=== PATIENT | male | born 1995 | race Caucasian/White ===

== ENCOUNTER 2017-06-30 21:13 | Emergency (ER) | payer MEDICAID ==
[~2017-06-30] VITALS: Ht 165.1 cm; Wt 86.4 kg
[2017-06-30 21:14] VITALS: BP 155/87
[2017-06-30 22:26] LABS: AMPHET/METH SCREEN,URINE NEGATIVE (NEGATIVE); BARBITURATE SCREEN, URINE NEGATIVE (NEGATIVE); BENZODIAZEPINES SCREEN,URINE NEGATIVE (NEGATIVE); CANNABINOID SCREEN,URINE NEGATIVE (NEGATIVE); COCAINE SCREEN,URINE NEGATIVE (NEGATIVE); METHADONE SCREEN, URINE NEGATIVE (NEGATIVE); OPIATE SCREEN,URINE NEGATIVE (NEGATIVE); PHENCYCLIDINE SCREEN,URINE NEGATIVE (NEGATIVE)
== END 2017-06-30 23:30 | disposition left against medical advice (07) ==
LOC: EMS 21:13
DX: F41.9 Anxiety disorder, unspecified (principal); F22 Delusional disorders; F17.210 Nicotine dependence, cigarettes, uncomplicated; F12.90 Cannabis use, unspecified, uncomplicated; Z53.21 Procedure and treatment not carried out due to patient leaving prior to being seen by health care provider

== ENCOUNTER 2020-09-14 02:54 | Emergency (ER) | payer MEDICAID, OTHER ==
[~2020-09-14] VITALS: Ht 170.2 cm; Wt 113.6 kg
[2020-09-14 03:14] VITALS: BP 141/70
[2020-09-14 03:43] LABS: BASOPHILS % (AUTO) 0.7 % (0.0-2.0); EOSINOPHILS % (AUTO) 1.5 % (1.0-6.0); HEMATOCRIT 45.2 % (41-53); HEMOGLOBIN 15.6 g/dL (13.5-17.5); LYMPHOCYTES # (AUTO) 2.5 K/uL (1.0-4.8); LYMPHOCYTES % (AUTO) 31.1 % (22.0-44.0); MEAN CORPUSCULAR HGB CONC 34.4 G/dL (31.0-37.0); MEAN CORPUSCULAR VOLUME 84 fL (80-100); MONOCYTES # (AUTO) 0.6 K/uL (0.1-1.0); MONOCYTES % (AUTO) 7.6 % (2.0-9.0); NEUTROPHILS # (AUTO) 4.7 K/uL (1.8-7.7); NEUTROPHILS % (AUTO) 59.1 % (40.0-70.0); PLATELET COUNT (AUTO) 299 K/uL (150-450); RED BLOOD CELL COUNT(AUTO) 5.37 MIL/uL (4.50-5.90); RED CELL DISTRIBUTION WIDTH 12.8 % (11.5-14.5)
[2020-09-14 03:56] LABS: ANION GAP 15 mmol/L (8-16); CALCIUM, TOTAL 8.9 mg/dL (8.8-10.5); CARBON DIOXIDE 20 mmol/L (22-29); CHLORIDE 102 mmol/L (98-107); CREATININE 0.96 mg/dL (0.60-1.30); GLOMERULAR FILTR. RATE CALC > 60 mL/min (>60); GLUCOSE,RANDOM 124 mg/dL (70-110); POTASSIUM 3.4 mmol/L (3.5-5.1); SODIUM SERUM 137 mmol/L (136-145); UREA NITROGEN, BLOOD 14 mg/dL (7-18)
[2020-09-14] MEDS ORDERED: POTASSIUM CHLORIDE 20 MEQ ER TABLET PO ONE (04:00)
[2020-09-14] MEDS ORDERED: LORazepam 1 MG TABLET PO ONE (04:00)
[2020-09-14 04:01] LABS: ALANINE AMINOTRANSFERASE 212 U/L (12-78); ALBUMIN 4.3 g/dL (3.4-5.0); ALKALINE PHOSPHATASE 83 U/L (46-116); ASPARTATE AMINOTRANSFERASE 68 U/L (15-37); BILIRUBIN,TOTAL 0.7 mg/dL (0.1-1.0); TOTAL PROTEIN, SERUM 7.6 g/dL (6.4-8.2)
== END 2020-09-14 04:15 | disposition home or self-care (01) ==
LOC: EMS 02:56
DX: F41.9 Anxiety disorder, unspecified (principal); F32.9 Major depressive disorder, single episode, unspecified
CPT/HCPCS: 36415; 80053; 85025; 99283; G0480

== ENCOUNTER 2020-10-23 17:36 | Inpatient (IN) | payer MEDICAID, OTHER ==
[~2020-10-23] VITALS: Ht 166.4 cm; Wt 104.3 kg
[2020-10-23] MEDS ORDERED: QUEtiapine FUMARATE 100 MG TABLET PO PRN (20:15)
[2020-10-23] MEDS ORDERED: ZOLPIDEM TARTRATE 10 MG TABLET PO PRN (20:15)
[2020-10-23 20:58] LABS: COVID AG,FIA SOURCE NASOPHARYNGEAL
[2020-10-23 21:10] LABS: BASOPHILS % (AUTO) 0.5 % (0.0-2.0); EOSINOPHILS % (AUTO) 0.7 % (1.0-6.0); HEMATOCRIT 45.2 % (41-53); HEMOGLOBIN 15.5 g/dL (13.5-17.5); LYMPHOCYTES # (AUTO) 1.4 K/uL (1.0-4.8); LYMPHOCYTES % (AUTO) 15.6 % (22.0-44.0); MEAN CORPUSCULAR HEMOGLOBIN 29.4 pg (26.0-34.0); MEAN CORPUSCULAR HGB CONC 34.4 G/dL (31.0-37.0); MEAN CORPUSCULAR VOLUME 86 fL (80-100); MONOCYTES # (AUTO) 0.6 K/uL (0.1-1.0); MONOCYTES % (AUTO) 6.3 % (2.0-9.0); NEUTROPHILS # (AUTO) 7.1 K/uL (1.8-7.7); NEUTROPHILS % (AUTO) 76.9 % (40.0-70.0); PLATELET COUNT (AUTO) 329 K/uL (150-450); RED BLOOD CELL COUNT(AUTO) 5.29 MIL/uL (4.50-5.90); RED CELL DISTRIBUTION WIDTH 13.1 % (11.5-14.5)
[2020-10-23 21:21] LABS: ANION GAP 12 mmol/L (8-16); CALCIUM, TOTAL 9.5 mg/dL (8.8-10.5); CARBON DIOXIDE 25 mmol/L (22-29); CHLORIDE 105 mmol/L (98-107); CREATININE 0.75 mg/dL (0.60-1.30); GLOMERULAR FILTR. RATE CALC > 60 mL/min (>60); GLUCOSE,RANDOM 147 mg/dL (70-110); POTASSIUM 3.8 mmol/L (3.5-5.1); SODIUM SERUM 142 mmol/L (136-145); UREA NITROGEN, BLOOD 15 mg/dL (7-18)
[2020-10-23 21:25] LABS: ALANINE AMINOTRANSFERASE 328 U/L (12-78); ALBUMIN 4.1 g/dL (3.4-5.0); ALKALINE PHOSPHATASE 94 U/L (46-116); ASPARTATE AMINOTRANSFERASE 122 U/L (15-37); BILIRUBIN,TOTAL 0.4 mg/dL (0.1-1.0); TOTAL PROTEIN, SERUM 7.8 g/dL (6.4-8.2)
[2020-10-24 01:40] VITALS: BP 130/84
[2020-10-24 06:26] VITALS: BP 109/72
[2020-10-24 08:08] VITALS: BP 122/92
[2020-10-24 08:16] LABS: CHOL/HDL RATIO 6.2 (4.2-7.3)
[2020-10-24] MEDS: LORazepam 2 MG TABLET PO PRN ×2 (08:43→20:42)
[2020-10-24] MEDS ORDERED: DiphenhydrAMINE HCL 50 MG/ML VIAL IM ONE (09:30)
[2020-10-24] MEDS ORDERED: HALOPERIDOL LACTATE 5 MG/ML VIAL IM ONE (09:30)
[2020-10-24] MEDS ORDERED: LORazepam 2 MG/ML VIAL IM ONE (09:30)
[2020-10-24] MEDS ORDERED: HALOPERIDOL LACTATE 5 MG/ML VIAL ONE (09:31)
[2020-10-24] MEDS ORDERED: LORazepam 2 MG/ML VIAL ONE (09:31)
[2020-10-24] MEDS ORDERED: DiphenhydrAMINE HCL 50 MG/ML VIAL ONE (09:31)
[2020-10-24] MEDS ORDERED: SERT-438 PO (10:06)
[2020-10-24] MEDS ORDERED: RISP0.5T39 PO (10:06)
[2020-10-24] MEDS ORDERED: LOPERAMIDE HCL 2 MG CAPSULE PO PRN (10:45)
[2020-10-24] MEDS ORDERED: MAGNESIUM HYDROXIDE SUSPENSION 30 ML UDCUP PO PRN (10:45)
[2020-10-24] MEDS ORDERED: DOCUSATE SODIUM 100 MG CAPSULE PO PRN (10:45)
[2020-10-24] MEDS ORDERED: CloNIDine HCL 0.1 MG TABLET PO PRN (10:45)
[2020-10-24] MEDS ORDERED: ONDANSETRON HCL 4 MG TABLET PO PRN (10:45)
[2020-10-24] MEDS ORDERED: GuaiFENesin/D-METHORPHAN [SUGAR-FREE] 200-20MG/10 ML SYRUP UDCUP PO PRN (10:45)
[2020-10-24] MEDS ORDERED: NICOTINE 14 MG/24 HOUR PATCH TD PRN (10:45)
[2020-10-24] MEDS ORDERED: ALBUTEROL SULFATE HFA 90 MCG/PUFF 8 GM INHALER IH PRN (10:45)
[2020-10-24] MEDS ORDERED: PETROLATUM,WHITE 28 GM JELLY TP PRN (10:45)
[2020-10-24] MEDS ORDERED: MAG HYDROX/AL HYDROX/SIMETH ES 30 ML SUSPENSION UDCUP PO PRN (10:45)
[2020-10-24] MEDS ORDERED: ACETAMINOPHEN 325 MG TABLET PO PRN (10:45)
[2020-10-24] MEDS ORDERED: IBUPROFEN 400 MG TABLET PO PRN (10:45)
[2020-10-24 16:51] VITALS: BP 127/60
[2020-10-24] MEDS: RisperiDONE 0.5 MG TABLET PO SCH (20:42)
[2020-10-25 04:36] VITALS: BP 124/68
[2020-10-25 08:30] VITALS: BP 139/84
[2020-10-25] MEDS: RisperiDONE 0.5 MG TABLET PO SCH ×2 (09:39→20:00)
[2020-10-25] MEDS: SERTRALINE HCL 50 MG TABLET PO SCH (09:39)
[2020-10-25] MEDS: LORazepam 2 MG TABLET PO PRN (09:41)
[2020-10-25 16:16] VITALS: BP 133/76
[2020-10-26 05:58] VITALS: BP 124/62
[2020-10-26 08:52] VITALS: BP 135/81
[2020-10-26] MEDS: SERTRALINE HCL 50 MG TABLET PO SCH (09:04)
[2020-10-26] MEDS: RisperiDONE 0.5 MG TABLET PO SCH (09:04)
== END 2020-10-26 15:00 | disposition home or self-care (01) | DRG 750 ==
LOC: EMS 17:38 → B3A 20:42
DX: F25.1 Schizoaffective disorder, depressive type (principal); R45.851 Suicidal ideations; Z59.0 Homelessness; Z20.822 Contact with and (suspected) exposure to COVID-19; E66.9 Obesity, unspecified; F41.9 Anxiety disorder, unspecified; F43.10 Post-traumatic stress disorder, unspecified; F84.0 Autistic disorder; Z79.899 Other long term (current) drug therapy; E78.5 Hyperlipidemia, unspecified; R00.0 Tachycardia, unspecified; Z68.37 Body mass index [BMI] 37.0-37.9, adult
CPT/HCPCS: 80053; 80061; 85025; 99285; G0480; J1200; J1630; J2060; Q0162

== ENCOUNTER 2023-04-04 19:58 | Inpatient (IN) | payer MEDICAID, OTHER ==
[~2023-04-04] VITALS: Ht 170.2 cm; Wt 72.7 kg
[~2023-04-04 19:58] MED LIST: RISP0.5T39 PO; SERT-438 PO
[2023-04-04 20:47] LABS: BASOPHILS % (AUTO) 0.3 % (0.0-2.0); EOSINOPHILS % (AUTO) 0.6 % (1.0-6.0); HEMATOCRIT 41.6 % (41-53); HEMOGLOBIN 14.9 g/dL (13.5-17.5); LYMPHOCYTES # (AUTO) 1.5 K/uL (1.0-4.8); MEAN CORPUSCULAR HEMOGLOBIN 30.2 pg (26.0-34.0); MEAN CORPUSCULAR HGB CONC 35.7 G/dL (31.0-37.0); MEAN CORPUSCULAR VOLUME 84 fL (80-100); MONOCYTES # (AUTO) 0.6 K/uL (0.1-1.0); MONOCYTES % (AUTO) 7.6 % (2.0-9.0); NEUTROPHILS # (AUTO) 5.3 K/uL (1.8-7.7); NEUTROPHILS % (AUTO) 71.5 % (40.0-70.0); PLATELET COUNT (AUTO) 282 K/uL (150-450); RED BLOOD CELL COUNT(AUTO) 4.93 MIL/uL (4.50-5.90); RED CELL DISTRIBUTION WIDTH 12.7 % (11.5-14.5); WHITE BLOOD COUNT (AUTO) 7.5 K/uL (4.5-11.0)
[2023-04-04 20:57] LABS: ANION GAP 11 mmol/L (8-16); CALCIUM, TOTAL 9.9 mg/dL (8.8-10.5); CARBON DIOXIDE 28 mmol/L (22-29); CHLORIDE 101 mmol/L (98-107); CREATININE 0.86 mg/dL (0.60-1.30); GLOMERULAR FILTR. RATE CALC > 60 mL/min (>60); GLUCOSE,RANDOM 138 mg/dL (70-110); POTASSIUM 3.8 mmol/L (3.5-5.1); SODIUM SERUM 140 mmol/L (136-145); UREA NITROGEN, BLOOD 15 mg/dL (7-18)
[2023-04-04 20:58] LABS: ALCOHOL, BLOOD (SERUM) < 3 mg/dL (0-10)
[2023-04-04 21:04] LABS: ALANINE AMINOTRANSFERASE 21 U/L (12-78); ALKALINE PHOSPHATASE 76 U/L (46-116); ASPARTATE AMINOTRANSFERASE 20 U/L (15-37); BILIRUBIN,TOTAL 0.5 mg/dL (0.1-1.0)
[2023-04-04] MEDS ORDERED: RisperiDONE 1 MG TABLET PO ONE (21:30)
[2023-04-04] MEDS ORDERED: HALOPERIDOL LACTATE 5 MG/ML VIAL IM ONE (23:15)
[2023-04-04] MEDS ORDERED: LORazepam 2 MG/ML VIAL IM ONE (23:15)
[2023-04-04] MEDS ORDERED: DiphenhydrAMINE HCL 50 MG/ML VIAL IM ONE (23:15)
[2023-04-04 23:40] LABS: COVID AG,FIA SOURCE NASAL SWAB
[2023-04-05 00:06] LABS: SARS-COV2 (COVID) ANTIGEN,FIA Negative (Negative)
[2023-04-05 01:25] VITALS: BP 115/70; PULSE 74; RESP 17; TEMP 97.5; O2SAT 100
[2023-04-05 09:27] VITALS: BP 112/65; PULSE 84; RESP 17; TEMP 97.6; O2SAT 98
[2023-04-05] MEDS ORDERED: MAGNESIUM HYDROXIDE SUSPENSION 30 ML UDCUP PO PRN (10:45)
[2023-04-05] MEDS ORDERED: ONDANSETRON HCL 4 MG TABLET PO PRN (10:45)
[2023-04-05] MEDS ORDERED: LOPERAMIDE HCL 2 MG CAPSULE PO PRN (10:45)
[2023-04-05] MEDS ORDERED: CloNIDine HCL 0.1 MG TABLET PO PRN (10:45)
[2023-04-05] MEDS ORDERED: ALBUTEROL SULFATE HFA 90 MCG/PUFF 8 GM INHALER IH PRN (10:45)
[2023-04-05] MEDS ORDERED: ACETAMINOPHEN 325 MG TABLET PO PRN (10:45)
[2023-04-05] MEDS ORDERED: IBUPROFEN 400 MG TABLET PO PRN (10:45)
[2023-04-05] MEDS ORDERED: DOCUSATE SODIUM 100 MG CAPSULE PO PRN (10:45)
[2023-04-05] MEDS ORDERED: MAG HYDROX/ALUMINUM HYD/SIMETH ES 30 ML SUSPENSION UDCUP PO PRN (10:45)
[2023-04-05] MEDS ORDERED: GuaiFENesin/D-METHORPHAN [SUGAR-FREE] 200-20MG/10 ML SYRUP UDCUP PO PRN (10:45)
[2023-04-05] MEDS ORDERED: PETROLATUM,WHITE 28 GM JELLY TP PRN (10:45)
[2023-04-05] MEDS ORDERED: NICOTINE 14 MG/24 HOUR PATCH TD PRN (10:45)
[2023-04-05] MEDS ORDERED: INFLUENZA VIRUS VACCINE QVS 2023-24 (6MO+)/PF 60 MCG/0.5 ML SYRINGE IM. ONE (11:15)
[2023-04-05] MEDS: LORazepam 2 MG TABLET PO PRN (20:49)
[2023-04-05] MEDS: ZOLPIDEM TARTRATE 10 MG TABLET PO PRN (20:49)
[2023-04-05] MEDS: RisperiDONE 1 MG TABLET PO SCH (20:49)
[2023-04-05 23:43] VITALS: BP 119/68; PULSE 80; RESP 18; TEMP 97.9; O2SAT 96
[2023-04-06] MEDS: RisperiDONE 0.5 MG TABLET PO SCH (08:30)
[2023-04-06] MEDS: SERTRALINE HCL 50 MG TABLET PO SCH (08:30)
[2023-04-06 08:31] VITALS: BP 101/60; PULSE 63; RESP 18; TEMP 98; O2SAT 98
[2023-04-06] MEDS: HALOPERIDOL 5 MG TABLET PO PRN (08:31)
[2023-04-06] MEDS: LORazepam 2 MG TABLET PO PRN (08:31)
[2023-04-06 08:55] LABS: HEMOGLOBIN A1C 5.3 % (3.8-5.6)
[2023-04-06 09:05] LABS: CHOL/HDL RATIO 3.2 (4.2-7.3); THYROID STIMULATING HORMONE 1.56 uIU/mL (0.36-3.74)
[2023-04-06 20:19] VITALS: BP 129/62; PULSE 96; RESP 17; TEMP 97.3; O2SAT 98
[2023-04-06] MEDS: ZOLPIDEM TARTRATE 10 MG TABLET PO PRN (20:24)
[2023-04-06] MEDS: RisperiDONE 1 MG TABLET PO SCH (20:24)
[2023-04-07] MEDS: SERTRALINE HCL 50 MG TABLET PO SCH (08:12)
[2023-04-07] MEDS: HALOPERIDOL 5 MG TABLET PO PRN (08:12)
[2023-04-07] MEDS: RisperiDONE 0.5 MG TABLET PO SCH (08:12)
[2023-04-07] MEDS: LORazepam 2 MG TABLET PO PRN (08:12)
[2023-04-07 08:29] VITALS: BP 114/72; PULSE 67; RESP 20; TEMP 97.7; O2SAT 98
[2023-04-07] MEDS: RisperiDONE 1 MG TABLET PO SCH (20:58)
[2023-04-07] MEDS: ZOLPIDEM TARTRATE 10 MG TABLET PO PRN (20:59)
[2023-04-08 00:44] VITALS: RESP 17
[2023-04-08] MEDS: RisperiDONE 0.5 MG TABLET PO SCH (08:18)
[2023-04-08] MEDS: SERTRALINE HCL 50 MG TABLET PO SCH (08:18)
[2023-04-08] MEDS ORDERED: RISP1TAB48 PO (09:48)
[2023-04-08] MEDS ORDERED: RISP0.5T66 PO (09:48)
[2023-04-08] MEDS ORDERED: SERT-439 PO (09:48)
== END 2023-04-08 12:00 | disposition home or self-care (01) | DRG 750 ==
LOC: EMS 19:58 → 3EI 22:27 → B3A 04-05 00:19
PROVIDERS: ADMIT Psychiatry & Neurology Psychiatry; ATTEND Psychiatry & Neurology Psychiatry
DX: F20.0 Paranoid schizophrenia (principal); F41.9 Anxiety disorder, unspecified; F43.10 Post-traumatic stress disorder, unspecified; F84.0 Autistic disorder; K59.00 Constipation, unspecified; R73.9 Hyperglycemia, unspecified; Z79.899 Other long term (current) drug therapy; Z59.00 Homelessness unspecified; Z20.822 Contact with and (suspected) exposure to COVID-19
CPT/HCPCS: 80053; 80061; 83036; 84443; 85025; 99285; G0480; J1200; J1630; J2060